=== PATIENT | male | born 1975 | race Hispanic/Latino ===

== ENCOUNTER 2017-05-03 18:47 | Emergency (ER) | payer SELFPAY ==
[2017-05-03 19:26] VITALS: BP 103/68
[2017-05-03 19:46] LABS: Basophils % (Auto) 1.3 % (0.0-1.8); Hematocrit 44.1 % (35.5-45.6); Hemoglobin 14.9 gm/dl (11.8-15.2); Mean Corpuscular HGB Conc 34 % (32-34); Mean Corpuscular Hemoglobin 30 pg (28-32); Mean Corpuscular Volume 89 fl (84-94); Platelet Count 344 K/mm3 (140-440); Red Blood Count 4.94 M/mm3 (3.65-5.03); Red Cell Distribution Width 12.9 % (13.2-15.2); White Blood Count 7.1 K/mm3 (4.5-11.0)
[2017-05-03 19:59] LABS: Alanine Aminotransferase 18 units/L (7-56); Albumin 4.5 g/dL (3.9-5); Albumin/Globulin Ratio 1.4 %; Alkaline Phosphatase 77 units/L (35-129); Anion Gap 19 mmol/L; BUN/Creatinine Ratio 16.36; Blood Urea Nitrogen 18 mg/dL (9-20); Calcium 9.1 mg/dL (8.4-10.2); Carbon Dioxide 23 mmol/L (22-30); Glucose 136 mg/dL (75-100); Sodium 140 mmol/L (137-145); Total Protein 7.8 g/dL (6.3-8.2)
== END 2017-05-04 01:21 | disposition left against medical advice (07) ==
LOC: ED 18:47
DX: M79.1 Myalgia (principal); Z53.21 Procedure and treatment not carried out due to patient leaving prior to being seen by health care provider
CPT/HCPCS: 36415; 80053; 85025